=== PATIENT | female | born 1970 | race Two or more races ===

== ENCOUNTER 2024-07-15 18:26 | Emergency (ER) | payer MEDICAID ==
[~2024-07-15] VITALS: Ht 160 cm; Wt 63.7 kg
[~2024-07-15 18:26] MED LIST: ACE3T PO; CEPH500C PO
[2024-07-15 18:37] VITALS: BP 144/79; PULSE 89; RESP 16; O2SAT 97
--- NOTE | 2024-07-15 21:01 | ED.PDOC ---
Eye-HPI HPI Comments 54-year-old female presents to ER with complaints of toothache x1 day. Patient reports that she has been experiencing pain localized to right lower 2nd molar tooth x1 day. States that she did follow up with a dentist yesterday and was prescribed Tylenol and clindamycin that she has been taking without relief. She rates her current pain a 10/10 localized to right lower 2nd molar tooth with radiation towards right side of face. Patient presents to ER ambulatory on arrival, with steady gait, in no distress and states she is following up with her dentist again next Sunday. Denies headache, skin changes, fever or any further symptoms/complaints Chief Complaint: Tooth Pain Time Seen by MD: 18:50 Primary Care Provider: KRISTIAN Contreras Notes: Nurses Notes, Medications, Allergies Allergies: Coded Allergies: Penicillins (Verified Allergy, Unknown, 09/13/23) Home Meds Active Scripts Acetaminophen W/ Codeine (Tylenol W/Cod #3) 1 Tab Tb, 1 TAB PO QIDP, #10 TAB 0 Refills Prov:MAMADOU RUFFIN 09/13/23 Cephalexin Monohydrate (Cephalexin) 500 Mg Cap, 1 CAP PO QID for 7 Days, #28 CAP 0 Refills Prov:MAMADOU RUFFIN 09/13/23 Information Source: Patient Mode of Arrival: Ambulatory Past Medical History PAST MEDICAL HISTORY: DM Surgical History: Denies all surgeries Family History Family History: Unknown Social History Smoker: Non-Smoker Alcohol: Denies ETOH Use Drugs: Denies Drug Use Lives In: Home Constitutional: denies: chills, diaphoresis, fatigue, fever, malaise, sweats, weakness, others EENTM: reports: others ( STATED IN HPI) Respiratory: denies: cough, hemoptysis, orthopnea, SOB at rest, shortness of breath, SOB with excertion, stridor, wheezing, others Cardiovascular: denies: chest pain, dizzy spells, diaphoresis, Dyspnea on exertion, edema, irregular heart beat, left arm pain, lightheadedness, palpitations, PND, syncope, others Gastrointestinal: denies: abdomen distended, abdominal pain, blood streaked bowels, constipated, diarrhea, dysphagia, difficulty swallowing, hematemesis, melena, nausea, poor appetite, poor fluid intake, rectal bleeding, rectal pain, vomiting, others Genitourinary: denies: abnormal vagina bleeding, burning, dyspareunia, dysuria, flank pain, frequency, hematuria, incontinence, pain, , vagina discharge, urgency, others Neurological: denies: dizziness, fainting, headache, left sided numbness, left sided weakness, numbness, paresthesia, pre-existing deficit, right sided numbness, right sided weakness, seizure, speech problems, tingling, tremors, weakness, others Musculoskeletal: denies: back pain, gout, joint pain, joint swelling, muscle pain, muscle stiffness, neck pain, others Integumetry: denies: bruises, change in color, change in hair/nails, dryness, laceration, lesions, lumps, rash, wounds, others Allergic/Immunocompromised: denies: Difficulty Healing, Frequent Infections, Hives, Itching, others Hematologic/Lymphatic: denies: anemia, blood clots, easy bleeding, easy bruising, swollen glands, others Endocrine: denies: excessive hunger, excessive sweating, excessive thirst, excessive urination, flushing, intolerance to cold, intolerance to heat, unexplained weight gain, unexplained weight loss, others Psychiatric: denies: anxiety, bipolar disorder, depression, hopeless, panic disorder, schizophrenia, sleepless, suicidal, others Physical Exam General Appearance: No Apparent Distress HEENT: PERRL/EOMI, Pharynx Normal, TMs Normal, Other (MILD SWELLING/ERYTHEMA NOTED SURROUNDING GUMS OF RIGHT LOWER 2ND MOLAR TOOTH NO BLEEDING/DRAINAGE NOTED. NO FACIAL SWELLING/SKIN CHANGES NOTED) Neck: Full Range of Motion, Non-Tender, Normal Respiratory: Chest Non-Tender, Lungs Clear, No Accessory Muscle Use, No Respiratory Distress, Normal Breath Sounds Cardiovascular: No Murmur, No Gallop, Regular Rate/Rhythm Breast Exam: Deferred Gastrointestinal: NOT DONE Genitalia: Deferred Pelvic: Deferred Rectal: Deferred Extremities: Normal capillary refill, Normal range of motion Neurologic: Alert, endless belt finisher II-XII nml as Tested, No Motor Deficits, Normal Affect, Normal Mood, No Sensory Deficits Cerebellar Function: Normal Reflexes: Normal Skin: Dry, Normal Color, Warm Lymphatic: No Adenopathy Was a procedure done? Was a procedure done?: No Sedation Sedation?: No EENT DIFF Eye: N/A Mouth: Thrush, Other (DENTAL ABSCESS, FRACTURED TOOTH, FAN'S ANGINA) X-Ray, Labs, Meds, VS Vital Signs Date Time Temp Pulse Resp B/P (MAP) Pulse Ox O2 Delivery O2 Flow Rate FiO2 07/15/24 18:37 97.7 89 16 144/79 (100) 97 HURRICANE SPRAY ORDERED, PATIENT EDUCATED ON PROPER USE/DOSAGE TORADOL 60 MG IM ORDERED PATIENT HAD IMPROVEMENT IN SYMPTOMS AND IN NO DISTRESS PRIOR TO DISCHARGE ADVISED TO CONTINUE MEDICATIONS CURRENTLY PRESCRIBED ADVISED TO FOLLOW UP WITH PCP AND DENTIST IN 1-2 DAYS PATIENT VERBALIZED UNDERSTANDING AND AGREEABLE WITH CURRENT PLAN OF CARE ADVISED TO RETURN TO ER IMMEDIATELY IF SYMPTOMS WORSEN Time of 1ST Reevaluation: 20:44 Reevaluation 1ST: N/A Patient Education/Counseling: Diagnosis, Treatment, Prognosis, Need For Follow Up Family Education/Counseling: No Family Present Departure 1 Departure Time of Disposition: 21:00 Impression: Primary Impression: Dental infection Disposition: 01 HOME / SELF CARE / HOMELESS Condition: Stable Discharged With: Self Critical Care Note Critical Care Time?: No Stability Stability form required: No Heart Score Heart Score: Heart Score Response (Comments) Value History N/A 0 EKG N/A 0 Age N/A 0 Risk Factors N/A 0 Troponin N/A 0 Total 0 MAMADOU RUFFIN Jul 15, 2024 21:01
[2024-07-15] MEDS: KETOROLAC TROMETH 60MG/2ML VIAL IM ONE (21:17)
[2024-07-15] MEDS: BENZOCAINE (DENTAL) 20 % SPRAY 60ML MT ONE (21:17)
== END 2024-07-15 21:35 | disposition home or self-care (01) ==
LOC: ER 18:26
DX: K04.7 Periapical abscess without sinus (principal); Z88.0 Allergy status to penicillin; E11.9 Type 2 diabetes mellitus without complications
CPT/HCPCS: 96372; 99283; J1885